=== PATIENT | male | born 1950 | race Caucasian/White ===

== ENCOUNTER 2020-07-20 16:31 | Emergency (ER) | payer OTHER ==
[~2020-07-20] VITALS: Ht 182.9 cm; Wt 99.8 kg
[2020-07-20 17:01] VITALS: BP 142/80
--- NOTE | 2020-07-20 17:59 | NUR ---
Patient discharged to home in stable condition. Written and verbal after care instructions given. Patient verbalizes understanding of instruction. Pt ambulatory with a steady gait. Copy of ultrasound report provided to pt.
== END 2020-07-20 17:59 | disposition home or self-care (01) ==
LOC: ER 16:31
DX: R60.0 Localized edema (principal); I87.2 Venous insufficiency (chronic) (peripheral); E11.9 Type 2 diabetes mellitus without complications; E78.00 Pure hypercholesterolemia, unspecified; Z96.641 Presence of right artificial hip joint
CPT/HCPCS: 93971-TC